=== PATIENT | male | born 1990 | race African-American/Black ===

== ENCOUNTER 2018-11-28 00:34 | Observation (INO) | payer SELFPAY ==
[2018-11-28] MEDS ORDERED: hydrALAZINE 20 MG/ML VIAL SLOW IVP PRN (01:16)
[2018-11-28] MEDS ORDERED: Dextrose 5% in Water 1,000 ML IV PRN (01:16)
[2018-11-28] MEDS ORDERED: HumaLOG 300 UNITS/3 ML VIAL SC PRN (01:16)
[2018-11-28] MEDS ORDERED: Dextrose 50% Abboject 50 ML SYRINGE SLOW IVP PRN (01:16)
[2018-11-28] MEDS ORDERED: Ondansetron PF 4 MG/2 ML Vial IVP PRN (01:16)
[2018-11-28] MEDS ORDERED: Ketorolac Tromethamine 30 MG/ML VIAL IVP PRN (01:21)
[2018-11-28] MEDS ORDERED: traMADol HCl 50 MG TAB PO PRN ×2 (01:22)
[2018-11-28 01:29] LABS: #Lymphocytes 1.7 thou/uL (1.20-3.40); #Monocytes 0.7 thou/uL (0.11-0.59); #Neutrophils 10.8 thou/uL (1.40-6.50); %Basophils 0.3 % (0.0-1.0); %Eosinophils 0.1 % (0.0-10.0); %Lymphocytes 12.5 % (21.0-51.0); %Monocytes 5.2 % (0.0-10.0); %Neutrophils 81.9 % (42.0-75.0); Hemoglobin 13.7 g/dL (14.0-18.0); Mean Corpuscular HGB CONC 34.9 g/dL (32.0-36.0); Mean Corpuscular Hemoglobin 31.2 pg (27.0-31.0); Mean Corpuscular Volume 89.4 fL (78.0-98.0); Mean Platelet Volume 9.1 fL (7.4-10.4); Platelet Count 184 thou/uL (130-400); White Blood Cell (WBC) Count 13.2 thou/uL (4.8-10.8)
[2018-11-28] MEDS ORDERED: Acetaminophen 1,000 MG in Premix Bag 1 BAG IVPB SCH ×2 (01:45→06:00)
[2018-11-28 01:51] LABS: ALT (SGPT) 14 U/L (8-55); AST (SGOT) 21 U/L (5-34); Albumin 4.4 g/dL (3.5-5.0); Alkaline Phosphatase 46 U/L (40-150); Anion Gap 13 mmol/L (10-20); BUN (Urea Nitrogen) 11 mg/dL (8.9-20.6); Bilirubin, Total 0.5 mg/dL (0.2-1.2); Calc. Creatinine Clearance 0 mL/min (70-130); Calcium 9.7 mg/dL (7.8-10.44); Carbon Dioxide 26 mmol/L (22-29); Chloride 103 mmol/L (98-107); Estimated GFR-MDRD 71; Globulin 2.6 g/dL (2.4-3.5); Glucose 107 mg/dL (70-105); Potassium 3.6 mmol/L (3.5-5.1); Sodium 138 mmol/L (136-145)
[2018-11-28] MEDS ORDERED: Pantoprazole 40 MG VIAL IVP SCH (02:00)
--- NOTE | 2018-11-28 02:15 | HP ---
HISTORY OF PRESENT ILLNESS: Mr. Reynolds is a 28-year-old male who comes in to the emergency room via transfer from [facility]. The patient reports this afternoon , he was working on the field and he was standing next to a fence. He was struck by a horse, which caused his right leg stuck in the middle of the fence and the horse. After the incident, the patient reports having pain from the right leg, in which he went to [facility]. [facility] was consulted with Dr. Roa through the phone about the case. Dr. Roa accepted for potential surgical fixation of his left tib-fib fracture. He was transferred to our facility. Upon arrival, the patient is awake and alert. Vital signs stable. Right leg has splint in place. Neurovascularly intact. There is no pain from other part of his body REVIEW OF SYSTEMS: Noncontributory except per HPI. ALLERGY: NKDA PAST MEDICAL HISTORY: No known past medical history. PAST SURGERY HISTORY: No surgical history. SOCIAL HISTORY: The patient drinks occasionally. The patient smokes 5 cigarettes a day. He reports using marijuana every day. He is living at home with his and 3 children. He works in oil field. PHYSICAL EXAMINATION: GENERAL: The patient lying down in bed, in no acute distress. VITAL SIGNS: Blood pressure is 150/65, heart rate 77, respiratory rate 18, and temperature 99.2. LUNGS: Clear bilaterally. HEENT: Atraumatic. No bruising. No deformity. Pupil 3 mm, equal bilaterally, reactive to light. NECK: Nontender to touch. Trachea midline. No deformity. No bruising. CHEST: No bruising. No deformity. Chest expansion equal bilaterally. LUNGS: Clear bilaterally. HEART: Regular rate and rhythm. ABDOMEN: Soft, nondistended. No bruising. Nontender to palpation. PELVIS: Stable. EXTREMITIES: Upper extremity, neurovascularly intact x2. Normal range of motion. Left lower extremity neurovascularly intact. Normal range of motion. Right lower extremity is on splint. Neurovascularly intact. NEUROLOGY: No focal neurology deficits. BACK: Normal alignment. Nontender to palpation. DIAGNOSTIC STUDIES: Initial workup; x-ray show left tib-fib fracture, mild to moderate soft tissue swelling. DIAGNOSES: 1. Status post struck by a horse. 2. Left midshaft tibiofibular fracture. PLAN: The patient will be admitted to surgical floor. Dr. Roa plans to take the patient to the OR today for ORIF of left tib-fib fracture. Initiate pain control. Initiate non pharmacological DVT prophylaxis. Initiate gastritis prophylaxis. Job ID: [id number] MTDD
[2018-11-28 04:04] VITALS: BMI 25.9
[2018-11-28] MEDS ORDERED: Sodium Chloride 0.9% 1,000 ML IV SCH (05:15)
[2018-11-28 05:45] LABS: #Eosinphils 0.1 thou/uL (0.0-0.7); #Lymphocytes 2.4 thou/uL (1.20-3.40); #Monocytes 0.8 thou/uL (0.11-0.59); #Neutrophils 6.7 thou/uL (1.40-6.50); %Basophils 0.5 % (0.0-1.0); %Eosinophils 0.9 % (0.0-10.0); %Lymphocytes 24.2 % (21.0-51.0); %Monocytes 7.5 % (0.0-10.0); Hemoglobin 13.5 g/dL (14.0-18.0); Mean Corpuscular HGB CONC 34.3 g/dL (32.0-36.0); Mean Corpuscular Hemoglobin 30.4 pg (27.0-31.0); Mean Corpuscular Volume 88.5 fL (78.0-98.0); Mean Platelet Volume 9.5 fL (7.4-10.4); Platelet Count 171 thou/uL (130-400); Red Blood Cell (RBC) Count 4.44 mill/uL (4.70-6.10)
[2018-11-28 05:55] LABS: Anion Gap 13 mmol/L (10-20); BUN (Urea Nitrogen) 10 mg/dL (8.9-20.6); Calc. Creatinine Clearance 99 mL/min (70-130); Calcium 9.2 mg/dL (7.8-10.44); Carbon Dioxide 23 mmol/L (22-29); Chloride 104 mmol/L (98-107); Estimated GFR-MDRD 80; Glucose 102 mg/dL (70-105); Potassium 3.7 mmol/L (3.5-5.1); Sodium 136 mmol/L (136-145)
--- NOTE | 2018-11-28 07:30 | RAD ---
Portable frontal chest radiograph: 11/28/2018 COMPARISON: None HISTORY: Trauma, pain FINDINGS: Lungs are clear. Heart and mediastinal contours appear within normal limits. IMPRESSION: No acute findings.
[2018-11-28 08:10] VITALS: BP 115/66; TEMP 98.3
[2018-11-28] MEDS ORDERED: Acetaminophen/Codeine 30-300mg Tablet PO PRN ×2 (08:21)
[2018-11-28] MEDS ORDERED: Acetaminophen 500 MG TAB PO PRN (08:24)
--- NOTE | 2018-11-28 08:57 | CON ---
DATE OF CONSULTATION: This is Steven Brooks PA-C dictating a report for Mario [place] MD. HISTORY OF PRESENT ILLNESS: We were asked by Trauma in the ER to see the patient. The patient was injured on a horse last night, where he sustained a nondisplaced tibial fracture with a mildly displaced fibular fracture. Dr. Roa was called last night. He viewed the x-rays. He informed the Emergency Room in [place] to splint the patient and they could follow up at our office. Apparently, the patient was admitted last night for pain control. The patient is in a long-leg splint. He is feeling much better today. Currently, he is resting in room 3307. His leg is elevated with ice and he is much more comfortable. He has no numbness and tingling down his leg, and no other injuries were sustained. PAST MEDICAL HISTORY: None. PAST SURGICAL HISTORY: None. SOCIAL HISTORY: He has an occasional EtOH, beverage, smokes occasional cigarettes, and uses marijuana recreationally. He works in the oil field. His is at bedside. FAMILY HISTORY: For this event is noncontributory. CURRENT MEDICATIONS: None. ALLERGIES: NONE. REVIEW OF SYSTEMS: Positive for right lower extremity pain. Otherwise, rest of review of systems is grossly unremarkably negative. PHYSICAL EXAMINATION: GENERAL: Well nourished male, alert, pleasant, in no acute distress. Speech clear. Affect pleasant. Answers questions appropriately. He is alert and oriented x3. is at bedside. HEENT: Normal exam. Face symmetric. Tongue midline. NECK: Supple. Trachea midline. EXTREMITIES: Upper extremities, equal size, shape, and symmetry. Normal bulk and tone. RESPIRATORY: No acute distress. Respiratory rate 16 a minute. PELVIS: No pain with rocking. EXTREMITIES: Lower extremities; right lower extremity is in a good-looking long-leg splint. Left lower extremity, no positive or negative findings. Bilateral lower extremity DP pulses are intact as are sensation. ASSESSMENT: Left tibiofibular fracture, nonsurgical. PLAN: Again, the patient was apparently admitted to us for pain control. He is in a long-leg splint. Ice is on the leg. He is much more comfortable now. At this point, he does need some physical therapy for crutch training. We will send him home with some Tylenol with Codeine for pain control. I have already informed them they could take some Aleve or ibuprofen [id number] for anti-inflammatory effects. When he goes home, I would like to have him elevate his leg, float his ankle. I have explained this to he and his and take it easy. He will need to follow up with Dr. [place] in 10 to 14 days for a long-leg cast and x-rays. The patient and understands this. Job ID: [id number]
[2018-11-28] MEDS ORDERED: Polyethylene Glycol 3350 17 GM Packet PO SCH (09:00)
[2018-11-28] MEDS ORDERED: Ibuprofen 600 MG TAB PO PRN (18:22)
[2018-11-28] MEDS ORDERED: Acetaminophen 500 MG TAB PO SCH (23:59)
--- NOTE | 2018-11-29 10:59 | DIS ---
DATE OF ADMISSION: 11/28/2018 DATE OF DISCHARGE: 11/28/2018 ADMISSION DIAGNOSES: 1. Status post kicked by a horse. 2. Nondisplaced left midshaft tibia and fibular fractures. 3. Acute pain secondary to trauma. CONSULTATIONS: Orthopedics, Dr. [place] and Dr. Roa. PROCEDURES: None. SUMMARY: The patient is a 28-year-old man who was working with horses when he got hit by one of them to his left lower extremity. The patient had immediate pain, was taken to the emergency department in [place] where he underwent evaluation and examination and was noted to have a left midshaft tibia and fibular fractures. The patient's radiographs were reviewed by Dr. Roa that night. He stated that the patient could be splinted and follow up with him. The patient was subsequently transferred to our facility for concern of pain control and possible monitoring for compartment syndrome. The patient was observed for several hours as inpatient. He had no symptoms worrisome for compartment syndrome and will be able to be discharged home. The patient was evaluated again by Orthopedics, Dr. [place], who discharged the patient, had a proper splint and followup instructions for 10-14 days at which time he will likely go into a long-leg cast. Prior to discharge, the patient worked with Physical Therapy to ensure that he was able to ambulate with crutches. The patient may follow up with the Trauma Clinic as needed. At time of discharge, the patient was tolerating a diet. His pain was controlled. Job ID: [id number]
== END 2018-11-28 13:15 | disposition home or self-care (01) ==
LOC: ERS 00:34 → SURG A 02:36 → INTOOBSV 02:36
PROVIDERS: ADMIT Surgery; ATTEND Surgery
DX: S82.201A Unspecified fracture of shaft of right tibia, initial encounter for closed fracture (principal); S82.401A Unspecified fracture of shaft of right fibula, initial encounter for closed fracture; F17.210 Nicotine dependence, cigarettes, uncomplicated; W55.12XA Struck by horse, initial encounter
CPT/HCPCS: 36415; 71045; 80053; 85025; 86850; 86900; 86901; 96361; 96365; 96366; 96375; 99406; C9113; G0378; G0390; J0131; J1885